=== PATIENT | male | born 1985 | race Caucasian/White ===

== ENCOUNTER 2023-12-01 07:30 | Day surgery (SDC) | payer MEDICARE, MEDICAID, SELFPAY ==
[2023-11-30 12:40] VITALS: BMI 28.2
[2023-12-01] VITALS (16 sets, daily range): BP systolic 84–130; BP diastolic 26–75
[2023-12-01] MEDS: VANCOCIN 200 IV (08:59)
--- NOTE | 2023-12-01 09:27 | ITS.CL.PACE ---
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
Pacemaker Implant
Procedure Report:
PACEMAKER GENERATOR CHANGE
Date of Procedure: December 01, 2023
Primary Care Physician: Dr. Brianna Castellon
Primary Environmental Service Aide: Dr. Nithin Zuniga
Procedures:
1. Removal of a dual chamber PPM generator at HA
2. Implant of a new dual chamber PPM generator
Indication of Procedure:
1. PM generator at [facility]
2. Non-reversible symptomatic bradycardia due to: sinus node dysfunction, second degree AV block, third degree AV block.
Indication/History: The patient is a 38-year-old man with a past medical history significant for Down syndrome and status post 2 thoracotomies in the past for treatment of a patent ductus and surgical aortic valve replacement followed by a recent
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 He is pacer dependent. All lead data is stable. He presents for pacer generator change due to battery at [facility].
Antibiotic: Ancef 2 g IV
Sedation/anesthesia: Per anesthesia staff.
Description of Procedure: 'Time out' was called and confirmed. The patient was prepped and draped in sterile fashion. Lidocaine with epinephrine was used for local anesthesia. An incision was made along the previous incision and the device and
leads were carefully dissected from the pocket. Hemostasis was obtained with electrocautery. The leads were from the device header and tested using an external analyzer. The pocket was liberally irrigated with antibiotic solution. Once
testing (see below) showed adequate and stable function, the leads were connected to the generator header and the leads and generator were placed within the pocket. The pocket was closed in the typical fashion.
EXPLANTED PPM GENERATOR: Biotronik model [id number] serial #[id number] implanted 01/05/2011
IMPLANTED PPM GENERATOR: Biotronik Sarah 8DR-T serial #[id number]
Existing RA lead: Biotronik Setrox S45 serial #[id number]
Existing RV lead: Biotronik [id number] serial #[id number]
DEVICE TESTING:
Sensing: RA 2.1 mV, RV [PACED] mV
Capture: RA 2.1V@0.4ms, RV 0.4 V@0.4ms
Ohms: RA 468, RV 565
FINAL PROGRAMMING
Isidro Pacing: DDD/CLS 60-150ppm
Complications: None
CONCLUSIONS:
1. Successful explant of a dual chamber permanent pacemaker
2. Successful implant of a dual chamber permanent pacemaker
RECOMMENDATIONS:
1. Routine post-op care.
2. In-Office wound check within 7 days.
3. Office interrogation in 4 weeks
Copy to: Dr. Brianna Castellon
[2023-12-01] MEDS: STERILE WATER FOR INJECTION 10 ML IV (09:28)
[2023-12-01] MEDS: AZACTAM 2000 MG IV (09:28)
== END 2023-12-01 13:31 | disposition home or self-care (01) ==
LOC: CATH 07:30
PROVIDERS: ATTENDING PHYSICIAN Internal Medicine Interventional Cardiology; PRIMARYCARE PHYSICIAN Family Medicine
DX: Z45.010 Encounter for checking and testing of cardiac pacemaker pulse generator [battery] (principal); Q90.9 Down syndrome, unspecified; I44.2 Atrioventricular block, complete; I49.5 Sick sinus syndrome
CPT/HCPCS: 33228; 93005; C1785